=== PATIENT | male | born 1965 | race Hispanic/Latino ===

== ENCOUNTER 2017-03-12 03:43 | Emergency (ER) | payer OTHER ==
[2017-03-12 03:57] VITALS: BP 125/85
--- NOTE | 2017-03-12 03:57 | C.PDOC ---
History Of Present Illness 51 year old male who presents to the ER with a complaint of left leg pain, left hip pain, and left groin pain worsening over the past 3 days. Denies abdominal pain, recent trauma, or recent injury. Time Seen by Provider: 03/12/17 03:57 Chief Complaint (Nursing): Lower Extremity Problem/Injury History Per: Patient History/Exam Limitations: no limitations Onset/Duration Of Symptoms: Days Current Symptoms Are (Timing): Still Present Recent travel outside of the [place]: No Past Medical History Reviewed: Historical Data, Nursing Documentation, Vital Signs Vital Signs: Last Vital Signs Temp 97.9 F 03/12/17 05:10 Pulse 88 03/12/17 05:10 Resp 16 03/12/17 05:10 BP 125/85 03/12/17 05:10 Pulse Ox 99 03/12/17 05:10 - Medical History PMH: No Chronic Diseases Surgical History: No Surg Hx Family History: States: Unknown Family Hx - Social History Hx Alcohol Use: No Hx Substance Use: No - Immunization History Hx Tetanus Toxoid Vaccination: No Hx Influenza Vaccination: No Hx Pneumococcal Vaccination: No Review Of Systems Gastrointestinal: Negative for: Abdominal Pain Genitourinary: Positive for: Other (Left groin pain) Musculoskeletal: Positive for: Leg Pain (Left), Other (Left hip pain) Physical Exam - Physical Exam Appears: Non-toxic, No Acute Distress Skin: Normal Color, Warm, Dry Head: Atraumatic, Normacephalic Oral Mucosa: Moist Gastrointestinal/Abdominal: Soft, No Tenderness Back: No CVA Tenderness, No Paraspinal Tenderness Male Genital: No Testicular Tenderness, No Testicular Swelling, No Inguinal Tenderness, No Inguinal Swelling, No Scrotal Swelling Extremity: No Tenderness, No Deformity, Other (Pain with adductors to left medial thigh. ) Neurological/Psych: Oriented x3, Normal Speech, Normal Cognition ED Course And Treatment O2 Sat by Pulse Oximetry: 97 (Room air) Pulse Ox Interpretation: Normal - Other Rad Left hip x-ray X-Ray: Interpreted by Me, Viewed By Me Interpretation: No acute findings. Medical Decision Making Medical Decision Making: Impression: Groin strain Plan: * Left hip x-ray * Naproxen Disposition - Disposition Referrals: [facility] [Outside] Disposition: HOME/ ROUTINE Disposition Time: 04:56 Condition: GOOD Prescriptions: Naproxen [Naprosyn] 500 mg PO BID #14 tab Instructions: Groin Strain (ED) Forms: [facility] (Turkmen) - Clinical Impression Clinical Impression: Groin strain - Scribe Statement The provider has reviewed the documentation as recorded by the Scribe Andres Pérez All medical record entries made by the Scribe were at my direction and personally dictated by me. I have reviewed the chart and agree that the record accurately reflects my personal performance of the history, physical exam, medical decision making, and the department course for this patient. I have also personally directed, reviewed, and agree with the discharge instructions and disposition.
[2017-03-12] MEDS ORDERED: Naproxen 550 mg Tab PO STA (04:11)
[2017-03-12] MEDS ORDERED: Naproxen 550 mg Tab PO ONE (04:19)
[2017-03-12 05:12] VITALS: PULSE 88; RESP 16; TEMP 97.9
[2017-03-12 05:48] VITALS: O2SAT 97
--- NOTE | 2017-03-12 08:16 | RAD ---
PROCEDURE: Left Hip X-ray Radiographs. HISTORY: groin pain COMPARISON: None. FINDINGS: BONES: Pelvic ring appears intact without fracture or destructive bony lesion. Moderate degenerative changes seen at the right greater than left hip joints and are symmetric at the bilateral sacroiliac joints. The pubic symphysis appears intact. JOINTS: Degenerative changes as discussed above. SOFT TISSUES: Normal. OTHER FINDINGS: None. IMPRESSION: No definite fracture of the left hip or overt sign of dislocation however a single view was submitted limiting the evaluation for dislocation. Degenerative changes seen the bilateral hip and sacroiliac joints.
== END 2017-03-12 05:42 | disposition home or self-care (01) ==
LOC: C.ER 03:43
DX: S39.011A Strain of muscle, fascia and tendon of abdomen, initial encounter (principal); X58.XXXA Exposure to other specified factors, initial encounter; Y93.9 Activity, unspecified; Y92.9 Unspecified place or not applicable

== ENCOUNTER 2017-06-25 08:40 | Emergency (ER) | payer OTHER ==
[2017-06-25] MEDS ORDERED: Ophthalmic Irrigation, Soln OS ONE (09:31)
[2017-06-25] MEDS ORDERED: Fluorescein 1 mg Ophthalmic Strip OU STA (09:31)
[2017-06-25] MEDS ORDERED: Tetracaine 0.5% Ophth 2 ML BOTTLE OU ONE (09:31)
--- NOTE | 2017-06-25 09:34 | C.PDOC ---
History Of Present Illness 51 year old male presents to the ED c/o left eye/periorbital injury that occurred [employer]. Patient reports he tripped and fell, hitting his left eye on the edge of a table. Patient states "my eye was bleeding", currently c/o pain, bruising to left eye area, blurry vision, nausea and being unable to see due to the pain. Patient denies other injury, headache, LOC, vomit, weakness, numbness. L EYE/PERIORB INJURY ONSET [employer]. PS ACCID TRIPPED AND FELL, HITTING L EYE EDGE OF TABLE. "MY EYE WAS BLEEDING". CO PAIN, BRUISING TO L EYE AREA, UNABLE TO SEE DUE TO PAIN, BLURRY VISION, NAUSEA. DENIES OTHER INJURY OR ASSOC SX EXAM MOD DIST NONTOXIC HEENT +L PERIRORB HEMATOMA, MILD W MIN LOCAL SWELL. +PHOTOPHOBIA L EYE. + SUBCONJ HEMORRHAGE L LAT>L MEDIAL, +GROSSLY VISUALIZED CORNEAL ABRASION L LAT SCLERA; NO HYPHEMA; PERRLA; +BLURRY VISION L EYE, VISION WNL R EYE. NO ACTIVE BLEEDING. REMAINDE RNEG - HPI Time Seen by Provider: 06/25/17 09:16 Chief Complaint (Nursing): Eye Problem History Per: Patient History/Exam Limitations: no limitations Onset/Duration Of Symptoms: Mins Injury Occurred (Timing): Just Before Arrival Location Of Injury: Left: Face (left eye/periorbital), Anterior: Face Recent travel outside of the [place]: No Additional History Per: Patient - Fall Fall:Prior To Injury: Tripped Past Medical History Reviewed: Historical Data, Nursing Documentation, Vital Signs Vital Signs: Last Vital Signs Temp 97.9 F 06/25/17 08:55 Pulse 85 06/25/17 08:55 Resp 19 06/25/17 08:55 BP 134/86 06/25/17 08:55 Pulse Ox 98 06/25/17 11:26 - Medical History PMH: No Chronic Diseases Surgical History: No Surg Hx Family History: States: Unknown Family Hx - Social History Hx Alcohol Use: No Hx Substance Use: No - Immunization History Hx Tetanus Toxoid Vaccination: No Hx Influenza Vaccination: No Hx Pneumococcal Vaccination: No Review Of Systems Constitutional: Negative for: Fever, Chills Eyes: Positive for: Pain, Vision Change Cardiovascular: Negative for: Chest Pain Respiratory: Negative for: Cough Gastrointestinal: Positive for: Nausea. Negative for: Vomiting Skin: Negative for: Rash Neurological: Negative for: Weakness, Numbness, Headache, Dizziness Physical Exam - Physical Exam Appears: Non-toxic, Other (Moderate distress) Skin: Normal Color, Warm, Dry Head: Normacephalic, Swelling (minimal local swelling left periorbital), Other ( + left periorbital mild hematoma ) Eye(s): right: Normal Inspection, PERRL, EOMI, left: Photophobia, Other (+ subconjuctival hemorrhage Left lateral > l medial, + grossely visualized corneal abrasion on left lateral sclera, no hyphema, no active bleeding) Nose: No Discharge, No Deformity Oral Mucosa: Moist Neck: Normal ROM, Supple Chest: Symmetrical Extremity: Normal ROM Neurological/Psych: Oriented x3, Normal Speech, Normal Cognition, Normal Motor, Normal Sensation Gait: Steady ED Course And Treatment O2 Sat by Pulse Oximetry: 98 (On RA) Pulse Ox Interpretation: Normal Progress - Re-Evaluation Re-evaluation Note: 06/25/17 11:24 D/W DR RESTREPO OPTHO 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 AWARE OF ER FINDINGS. PAIN MEDS, FU OFFICE 1 WEEK. 06/25/17 11:32 EYE PATCH APPLIED. - Data Reviewed Data Reviewed: Diagnostic imaging - Continuity of Care Discussed pt. case with legal nurse consultant/specialty: Opthalmology Medical Decision Making Medical Decision Making: Impression : left eye/periorbital injury Plan: * CT orbits/facial * Cyclogyl 2 drop OD * Eye wash 100 ml OS * Flurescein 1 mg OU * Morphine 2 mg OU * Zofran 4 mg IVP * Tetracaine 4 drop OU * Disposition Counseled Patient/Family Regarding: Studies Performed, Diagnosis, Need For Followup, Rx Given - Disposition Referrals: Walter Restrepo MD [Staff Provider] - Disposition: HOME/ ROUTINE Disposition Time: 11:25 Condition: IMPROVED Additional Instructions: FOLLOW UP WITH OPTHOMOLOGIST NEXT WEEK. ICE TO AFFECTED AREA. RETURN IF WORSENING SYMPTOMS. Prescriptions: Ibuprofen [Motrin] 600 mg PO Q6 #30 tab Ondansetron [Zofran Odt] 4 mg PO TID PRN #9 odt PRN Reason: Nausea/Vomiting oxyCODONE/Acetaminophen [Percocet 5/325 mg Tab] 1 ea PO QID #8 tab Instructions: Subconjunctival Hemorrhage (ED), Black Eye (ED), Corneal Abrasion (ED) Forms: [facility] (Malay), Work Excuse - Clinical Impression Clinical Impression: Periorbital contusion, Corneal abrasion, Subconjunctival hematoma - Scribe Statement The provider has reviewed the documentation as recorded by the Scribe Shady Negron All medical record entries made by the Scribe were at my direction and personally dictated by me. I have reviewed the chart and agree that the record accurately reflects my personal performance of the history, physical exam, medical decision making, and the department course for this patient. I have also personally directed, reviewed, and agree with the discharge instructions and disposition. Procedures - Eye Procedure Alcaine Drops Administered: Yes Eye Irrigated w/ Saline (ccs): 20 Progress: TETRACAINE L EYE. FLUORESCEINE STAIN. MULT CORNEAL ABRASIONS SCATTERED. NO FB. NO EVIDENCE OF RUPTURED GLOBE. PT TOLERATED WELL
[2017-06-25] MEDS ORDERED: Fluorescein 1 mg Ophthalmic Strip ONE (09:38)
[2017-06-25] MEDS ORDERED: Tetracaine 0.5% Ophth (OR ONLY) ONE (09:38)
[2017-06-25] MEDS ORDERED: Ophthalmic Irrigation, Soln ONE (09:39)
[2017-06-25] MEDS ORDERED: Morphine 4 MG/ML VIAL ONE (10:45)
--- NOTE | 2017-06-25 11:05 | CT ---
CT orbits without IV contrast Indication: Left eye trauma Comparison: None available Technique: Axial computed tomography images were obtained of the orbits without the use of intravenous contrast. Coronal and sagittal reformatted images were generated and reviewed. This CT exam was performed using 1 or more of the following dose reduction techniques: Automated exposure control, adjustment of the MAA and/or kV according to patient size, and/or use of iterative reconstruction technique. Radiation dose: Total exam DLP = 876.92 mGy-cm. Findings: Streak artifact from dental hardware. The facial bones appear intact without acute displaced fracture identified. Mild left preseptal swelling. The orbits appear unremarkable. The globes appear intact. The temporomandibular joints are located. The mastoid air cells appear clear. Mucosal thickening of the ethmoid air cells. The paranasal sinuses appear otherwise clear without air-fluid levels. The visualized brain appears grossly unremarkable. Impression: Mild left preseptal swelling.
[2017-06-25] MEDS ORDERED: Oxycodone/Acetaminophen 5/325 mg Tab PO STA (11:31)
[2017-06-25] MEDS ORDERED: Oxycodone/Acetaminophen 5/325 mg Tab ONE (11:45)
[2017-06-25 11:57] VITALS: BP 128/82; PULSE 77; RESP 18; TEMP 98.7; O2SAT 100
[2017-06-25] MEDS: Cyclopentolate 1% Opth (2 ml) OD STA ×2 (12:00)
== END 2017-06-25 12:05 | disposition home or self-care (01) ==
LOC: C.ER 08:40
DX: S05.12XA Contusion of eyeball and orbital tissues, left eye, initial encounter (principal); S05.02XA Injury of conjunctiva and corneal abrasion without foreign body, left eye, initial encounter; W01.190A Fall on same level from slipping, tripping and stumbling with subsequent striking against furniture, initial encounter
CPT/HCPCS: 70480; 96374; 96375; 99285; J2270; J2405